=== PATIENT | female | born 1980 | race Caucasian/White ===

== ENCOUNTER 2017-02-17 07:42 | Emergency (ER) | payer SELFPAY ==
--- NOTE | 2017-02-17 10:23 | DIAGNOSTIC IMAGING REPORT ---
PROCEDURE: ABDOMEN/PELVIS WITH CONTRAST CLINICAL INDICATION: PERIUMBILICAL ABDO PAIN TECHNIQUE: 125 ml of Isovue 300 were injected intravenously and axial images were obtained of the abdomen and pelvis with sagittal and coronal reformations. COMPARISON: None. FINDINGS: ABDOMEN: Clear lung bases. Normal sized heart. No hiatal hernia. The liver, gallbladder, adrenal glands, kidneys, pancreas and spleen are normal. The abdominal aorta is normal in its course and caliber. No atherosclerosis. There are no suspicious calcifications, retroperitoneal adenopathy or masses. The stomach , upper bowel loops, and mesentery are normal. Intact anterior abdominal wall. No free fluid or inflammation. The appendix is in a retrocecal position and is of normal caliber without significant periappendiceal inflammation. There are air-fluid levels in liquid stool in the proximal colon and fluid within nondilated pelvic small bowel loops. PELVIS: Multiple cervical Nabothian cysts. The uterus, ovaries, urinary bladder, and pelvic vessels are normal. No adenopathy, free fluid, or pelvic mass. Intact osseous structures. IMPRESSION: 1. Air-fluid levels in the proximal colon suggestive of mild gastroenteritis. 2. Normal appendix. 3. Discussed with Dr. Campos in the emergency room. All CT scans at this facility use dose modulation, iterative reconstruction, and/or weight-based dosing when appropriate to reduce radiation dose to as low as reasonably achievable.
--- NOTE | 2017-02-17 10:32 | ED NURSING NOTES ---
Clinical Report - Nurses [facility] [address] [place] [address] 02/17/2017 7:45 Patient: CONCEPCIÓN MOSS TRIAGE Triage time 07:59. Chief Complaint: ABDOMINAL PAIN, NAUSEA, VOMITING and DIARRHEA. Alert. No acute distress. --08:09 Rufus Chaidez R.N. 08:05 02/17/17. BP: 129/86. HR: 76. RR: 20. O2 saturation: 100%. Temp: 98 F. Pain level now 04/17. --08:09 Rufus Chaidez R.N. Weight: 76.6 kg stated. Height/Length: 65 inches Per Patient. BMI: 28.1. --08:08 Rufus Chaidez R.N. Medications TraZODone HCl Oral. Wellbutrin Oral. --08:07 Rufus Chaidez R.N. Allergies None. --08:07 Rufus Chaidez R.N. History Arrived by private vehicle. Historian: patient. Accompanied by family. This started last night. She has had nausea, vomiting and diarrhea. SOCIAL HX: No alcohol use or drug use. --08:09 Rufus Chaidez R.N. ( patient with sudden onset, N,V & D last night at 10:30 pm). PAST MEDICAL HX: Last normal menstrual period- February 10. SELF HARM ASSESSMENT: A self harm assessment was performed. The patient answered "no" to the question "Do you have thoughts of harming or killing yourself?". FALL RISK ASSESSMENT: Fall risk assessment completed. No fall risk identified. NUTRITIONAL RISK ASSESSMENT: The nutritional risk assessment revealed no deficiencies. FUNCTIONAL ASSESSMENT: Functional assessment: no impairments noted. LEARNING NEEDS ASSESSMENT: The learning needs assessment revealed no barriers. SKIN INTEGRITY ASSESSMENT: Skin integrity risk assessment completed. No skin integrity risk identified. --08:12 Rufus Chaidez R.N. Interventions ID band on patient. To room. --08:09 Rufus Chaidez R.N. PHYSICAL ASSESSMENT GENERAL / NEURO / PSYCH: Alert. Oriented X 4. Appears in no acute distress. RESPIRATORY: Respirations not labored. Breath sounds within normal limits. GI / : Abdomen soft and nontender. Bowel sounds within normal limits. SKIN: Skin is warm and dry. --08:11 Rufus Chaidez R.N. NURSING PROGRESS NOTES Patient gowned. Reassurance given. Patient identifiers checked. Call light placed in reach. Side rails up x 1. Bed placed in lowest position. --08:11 Rufus Chaidez R.N. 08:17 02/17/2017 Site #1 started via IV in the left antecubital space with an 20g angiocath, with aseptic technique and good blood return; one attempt. Blood drawn: rainbow set. Labeled in the presence of the patient and sent to the lab. Saline lock flushed with 10 mL saline. --08:17 Latoya Rodriguez R.N. 08:40 02/17/2017 Started bag #1 1000 mL IV Fluids IV NS (Saline); bolus of 1000 mL over 1 hour(s) via site #1. Completed per protocol. --08:40 Rufus Chaidez R.N. 08:40 02/17/2017 Zofran (Ondansetron HCl) IVP 4 mg given over 1 minute(s) via site #1. IV patency established. IV site checked: no pain, redness, or swelling. IV flushed thoroughly pre- and post-medication administration. --08:41 Rufus Chaidez R.N. 08:50 02/17/2017 Morphine IVP 4 mg given over 3 minute(s) via site #1. --08:50 Rufus Chaidez R.N. 08:45 02/17/17. BP: 93/60 (regular adult cuff) taken on the right arm, while lying. HR: 65. RR: 20. --08:53 Rufus Chaidez R.N. 08:50 02/17/17. BP: 112/82 (regular adult cuff) taken on the right arm, while standing. HR: 75. RR: 16. --08:53 Rufus Chaidez R.N. 09:18 02/17/2017 IV Fluids IV NS Discontinued: bag #1 infused. Total amount infused: 1000 mL. IV patency established. IV site checked: no pain, redness, or swelling. IV flushed thoroughly. --09:18 Rufus Chaidez R.N. 09:18 02/17/2017 Zofran IVP Response: symptoms have improved. --09:18 Rufus Chaidez R.N. 09:18 02/17/2017 Morphine IVP Response: pain is improving. Symptoms have improved the patient feels better. --09:18 Rufus Chaidez R.N. Patient ID band checked for patient name and birthdate. Clean catch urine collected with return of yellow-colored clear urine; sample sent to lab for urinalysis. Specimen labeled in the presence of the patient. --09:19 Rufus Chaidez R.N. ( Ambulated to bathroom to void. Denies nausea at this time). --09:21 Rufus Chaidez R.N. Patient returned from CT by stretcher with Fleksy. --10:08 Rufus Chaidez R.N. 10:15 02/17/17. BP: 98/56. HR: 68. RR: 16. O2 saturation: 98%. Pain level now 10/18. --10:16 Rufus Chaidez R.N. DISPOSITION / DISCHARGE 10:46 02/17/2017 Site #1 removed upon discharge. Catheter intact. Bandaid applied. --10:46 Rufus Chaidez R.N. No learning barriers present. Discharge instructions provided and reviewed with the patient. Patient verbalized understanding. Written instructions provided in Ukrainian. The patient was discharged by the physician. She was discharged home and accompanied by family. --10:47 Rufus Chaidez R.N. 10:45 02/17/17. BP: 100/60. HR: 65. RR: 16. O2 saturation: 99%. Temp: 98.7 F. Pain level now 10/18. --10:47 Rufus Chaidez R.N. Locked/Released at 02/17/2017 10:50 by Rufus Chaidez R.N.
--- NOTE | 2017-02-17 10:32 | ED CLINICAL REPORT ---
Clinical Report - Physicians/Mid Levels [facility] [address] [place] [address] 02/17/2017 7:45 Patient: CONCEPCIÓN MOSS Time Seen: 0820. Arrived- By private vehicle. Historian- patient. CPT: ER phys charges level 4 (#[id number]). HISTORY OF PRESENT ILLNESS Chief Complaint: ABDOMINAL PAIN. At its maximum, severity described as moderate. When seen in the E.D., severity described as moderate. Modifying factors- worsened by movement. Relieved by rest. It is described as sharp and cramping. No radiation. It is described as located in the epigastric area. This started last night and is still present and worsening. It was gradual in onset and has been constant and waxing/waning but is not gone now. The patient has had nausea and diarrhea. No loss of appetite. She has had vomiting (described as nbnb). The patient has an additional complaint of abdominal pain moved here (located in the periumbilical region). (no recent travel, abx, sick contact, new/unusual foods.). No recent travel. Similar symptoms previously: None. REVIEW OF SYSTEMS No black stools, bloody stools, headache, chest pain or difficulty breathing. All systems otherwise negative, except as recorded above. PAST HISTORY See nurses notes. Medications: TraZODone HCl Oral. Wellbutrin Oral. Allergies: None. SOCIAL HISTORY Smoker- current status unknown. No alcohol use or drug use. No recent travel. Is a local resident. ADDITIONAL NOTES The nursing notes have been reviewed. PHYSICAL EXAM Vital Signs: 02/17/2017 08:05 BP: 129/86. HR: 76. RR: 20. O2 saturation: 100%. Temp: 98 F. Blood pressure normal. Oxygen saturation normal. Appearance: Alert. Oriented X3. No acute distress. (non-toxic). Eyes: Pupils equal, round and reactive to light. Eyes normal inspection. No scleral icterus. ENT: Ears normal. Nose normal. Pharynx normal. Neck: Normal inspection. Neck supple. CVS: Normal heart rate and rhythm. Heart sounds normal. Pulses normal. Respiratory: No respiratory distress. Breath sounds normal. Chest nontender. No rales, rhonchi or wheezes. Abdomen: Soft and nontender. Bowel sounds normal. Skin: Skin warm and dry. Normal skin color. No rash. Normal skin turgor. Extremities: Extremities exhibit normal ROM. No lower extremity edema. Neuro: Oriented X 3. No motor deficit. No sensory deficit. LABS, X-RAYS, AND EKG Abdominal CT: Appendix normal. gastroenteritis, fluid levels in small bowel. Abdominal CT performed with IV contrast. The study was interpreted by the radiologist and discussed with the radiologist. Laboratory Tests: UA-Culture if indicated: (KAROLYN: 02/17/2017 09:15) ( MsgRcvd 02/17/2017 09:38) Final results Test Result Flag Units (Reference) URINE COLOR YELLOW URINE APPEARANCE CLEAR URINE GLUCOSE NEGATIVE (NEGATIVE) URINE BILIRUBIN NEGATIVE (NEGATIVE) URINE KETONE NEGATIVE (NEGATIVE) URINE SPECIFIC GRAVITY 1.025 (1.010-1.030) URINE PH 5.5 (5.0-8.0) URINE PROTEIN NEGATIVE (NEGATIVE) URINE UROBILINOGEN 0.2 EU/dL (0.2-1.0) URINE NITRITE NEGATIVE (NEGATIVE) URINE BLOOD TRACE-INTACT (NEGATIVE) URINE LEUK ESTERASE NEGATIVE (NEGATIVE) URINE RBC RARE rbc/hpf (0-1) URINE WBC 0-1 wbc/hpf (0-1) URINE EPITHELIAL CELLS 1-3 EPI/hpf (0-5) URINE BACTERIA MODERATE (2+ TO 3+) (NONE SEEN) URINE COMMENT CULTURE INDICATED URINE CULTURES ARE SET-UP BASED ON THE FOLLOWING CRITERIA:POSITIVE NITRITEPOSITIVE LEUKOCYTE ESTERASEGREATER THAN 10 WHITE BLOOD CELLSMODERATE (2+) OR GREATER BACTERIA CBC w Diff: (KAROLYN: 02/17/2017 08:10) ( Mscvd 02/17/2017 08:39) Final results Test Result Flag Units (Reference) WHITE BLOOD COUNT 9.9 K/uL (4.5-11.5) RED BLOOD COUNT 4.63 M/uL (4.00-5.20) HEMOGLOBIN 14.6 gm/dL (12.0-16.0) HEMATOCRIT 43.5 % (36.0-46.0) MEAN CELL VOLUME 94 fL (80-100) MEAN CORPUSCULAR HGB 32 pg (26-34) MEAN CORPUSCULAR HGB CONC 34 g/dL (31-37) RED CELL DISTRIBUTION WIDTH 13.1 % (11.6-14.8) PLATELET COUNT 255 K/uL (150-400) NEUTROPHIL % 80.3 H % (50-75) LYMPH % 14.4 L % (25-40) MONO % 4.9 % (3-14) EOSINOPHIL % 0.2 % (0-4) BASOPHIL % 0.2 % (0-2) CMP: (KAROLYN: 02/17/2017 08:10) ( MsgRcvd 02/17/2017 08:57) Final results Test Result Flag Units (Reference) GLUCOSE 122 H mg/dL (70-110) BUN 17 mg/dL (7-18) CREATININE 0.9 mg/dL (0.6-1.3) Estimated GFR >60 mL/min Estimated GFR- >60 mL/min Note: Persistent reduction over 3 months in eGFR<60 mL/min/1.73 m2 defines CKD. Patients with eGFR values>=60 mL/min/1.73 m2 may also have CKD if evidence ofpersistent proteinuria. Additional information may be foundat www.kidney.org. SODIUM 144 mmol/L (136-145) POTASSIUM 4.2 mmol/L (3.5-5.1) CHLORIDE 109 H mmol/L (98-107) CARBON DIOXIDE 24 mmol/L (21-32) CALCIUM 8.7 mg/dL (8.5-10.1) TOTAL PROTEIN 8.1 g/dL (6.4-8.2) ALBUMIN 4.1 g/dL (3.3-5.0) BILIRUBIN, TOTAL 0.4 mg/dL (0.0-1.0) ALKALINE PHOSPHATASE 77 U/L (46-116) AST (SGOT) 17 U/L (15-37) ALT (SGPT) 21 U/L (12-78) LIPASE 95 U/L (73-393) BETA HCG, QUANTITATIVE <1 mIU/mL REFERENCE RANGE:Adult Males: <2 mIU/mLNon- Females: <6 mIU/mL Females:Approximate Approximate hCGGestational Age Range (mIU/mL) 0-1 week 0-501-2 weeks 40-3002-3 weeks 100-64598-2 weeks 500-03650-4 months 5,000-200,0002-3 months 10,000-100,0002nd trimester 3,000-50,0003rd trimester 1,000-50,000 . PROGRESS AND PROCEDURES Course of Care: the patient is a pleasant 36-year-old female with past medical history significant for past presenting for Evaluation of abdominal pain of abdominal pain. Patient's symptoms do not appear to be classic appendicitis however with the patient having epigastric abdominal pain and is moving to the periumbilical region, would be concern for possible appendicitis. Patient appears nontoxic. Pain medications been ordered. Also give patient fluids and nausea medication. CT scan of the abdomen and pelvis with contrast has been ordered. At the change of shift, the patient be signed out to the oncoming physician. Plan is follow up with patient's laboratory studies and CT scan of the abdomen and pelvis with contrast. Pt with gastroenteritis at this point . Will discharge for follow up . Patient/family counseled. Disposition: Discharged. Condition: stable and improved. CLINICAL IMPRESSION Acute norovirus gastroenteritis. INSTRUCTIONS No strenuous activity. Rest. Take clear liquids only (frequent sips) for the next 12 hours until better. Advance diet as tolerated. Warnings: Further evaluation is necessary. GENERAL WARNINGS: Return or contact your physician immediately if your condition worsens or changes unexpectedly, if not improving as expected, or if other problems arise. Prescription Medications: Zofran (orally disintegrating tablets) 4 mg: take 1 orally every 4 hours as needed for nausea. Dispense ten (10). No refill. Substitution is permissible. OTC Medications: Take acetaminophen (Tylenol, Datril, etc.) according to label instructions. Available over the counter. Follow-up: Follow up with your doctor Monday in three days. Call for an appointment. Understanding of the discharge instructions verbalized by patient and parent. (Electronically signed by Fede Campos MD 02/17/2017 13:50)
--- NOTE | 2017-02-17 10:32 | ED ORDER SUMMARY ---
..... Patient: CONCEPCIÓN MOSS OrderSheet [facility] VisitID: [id number] [address] [place] [address] 36y, F Registration Date/Time: 02/17/2017 ORDER SHEET Weight: 76.6 kg (stated) Allergies: None GENERAL ORDERS: CT Abd/Pel w Cont (No) (N/A) Urgent (08:02/17/2017 Zane Gibbs) (Ack 8:31 [facility] ER Tech1) CBC w Diff Urgent (:02/17/2017 Zane Gibbs) (Ack 8:31 [facility] ER Tech1) (8:37 Irina R.N.) CMP Urgent (02/17/2017 Zane Gibbs) (Ack 8:31 Cort[facility] ER Tech1) (8:37 Irina R.N.) UA-Culture if indicated Urgent (:02/17/2017 Zane Gibbs) (Ack 8:31 [facility] ER Tech1) Lipase Urgent (:02/17/2017 Zane Gibbs) (Ack 8:31 [facility] ER Tech1) (8:37 Irina R.N.) Serum Quantitative Urgent (02/17/2017 Zane Gibbs) (Ack 8:31 Cortney ER Tech1) (8:37 Irina R.N.) Pulse oximeter (02/17/2017 Zane Gibbs) (Ack 8:31 Cortney ER Tech1) (8:37 Irina R.N.) MEDICATION ORDERS: IV FLUIDS: IV NS : initial bolus 1000 mL (1000 mL/hr), then none - for X1 (NOW) (:02/17/2017 Zane Gibbs) (8:40 GMarshall R.N.) Morphine IV 4 mg (HIGH ALERT MEDICATION, NOW) (02/17/2017 Zane Gibbs) (8:50 GMarshall R.N.) Zofran IV 4 mg (NOW) (02/17/2017 Zane Gibbs) (8:41 GMarshall R.N.) ORDER SHEET NOTES: [Electronically signed by Rufus Chaidez R.N. (10:50 02/17/2017)] [Electronically signed by Fede Campos MD (13:50 02/17/2017)] [Electronically locked/signed by Rufus Chaidez R.N. (10:50 02/17/2017)]
--- NOTE | 2017-02-17 10:32 | ED ORDER SUMMARY ---
..... Patient: CONCEPCIÓN MOSS OrderSheet [facility] VisitID: [id number] [address] [place] [address] 36y, F Registration Date/Time: 02/17/2017 ORDER SHEET Weight: 76.6 kg (stated) Allergies: None GENERAL ORDERS: CT Abd/Pel w Cont (No) (N/A) Urgent (08:02/17/2017 Zane Gibbs) (Ack 8:31 [facility] ER Tech1) CBC w Diff Urgent (:02/17/2017 Zane Gibbs) (Ack 8:31 Cortney ER Tech1) (8:37 Irina R.N.) CMP Urgent (02/17/2017 Zane Gibbs) (Ack 8:31 Cort[facility] ER Tech1) (8:37 Irina R.N.) UA-Culture if indicated Urgent (:02/17/2017 Zane Gibbs) (Ack 8:31 Cort[facility] ER Tech1) Lipase Urgent (:02/17/2017 Zane Gibbs) (Ack 8:31 [facility] ER Tech1) (8:37 Irina R.N.) Serum Quantitative Urgent (02/17/2017 Zane Gibbs) (Ack 8:31 Cortney ER Tech1) (8:37 Irina R.N.) Pulse oximeter (02/17/2017 Zane Gibbs) (Ack 8:31 Cortney ER Tech1) (8:37 Irina R.N.) MEDICATION ORDERS: IV FLUIDS: IV NS : initial bolus 1000 mL (1000 mL/hr), then none - for X1 (NOW) (:02/17/2017 Zane Gibbs) (8:40 GMarshall R.N.) Morphine IV 4 mg (HIGH ALERT MEDICATION, NOW) (02/17/2017 Zane Gibbs) (8:50 GMarshall R.N.) Zofran IV 4 mg (NOW) (02/17/2017 Zane Gibbs) (8:41 GMarshall R.N.) ORDER SHEET NOTES: [Electronically signed by Rufus Chaidez R.N. (10:50 02/17/2017)] [Electronically signed by Fede Campos MD (13:50 02/17/2017)] [Electronically locked/signed by Rufus Chaidez R.N. (10:50 02/17/2017)]
--- NOTE | 2017-02-17 13:50 | ED MED RECONCILIATION SUMMARY ---
Patient: CONCEPCIÓN MOSS Medication Reconciliation Report [facility] VisitID: [id number] [address] [place] [address] 36y, F Registration Date/Time: 02/17/2017 Weight: 76.6 kg Height/Length: 65 in. BMI: 28.1 ALLERGIES: None The patient's Home Medications are listed below: THE FOLLOWING MEDICATIONS NEED TO BE RECONCILED: TraZODone HCl Oral Wellbutrin Oral The source(s) of the original Home Medication information: Not obtained. The following Medications were given to the patient in the Emergency Department: IV NS IV Fluids bolus 1000 mL over 1 hour(s), administered: 02/17/2017 8:40:00 AM Zofran [IVP] IVP 4 mg, administered: 02/17/2017 8:40:00 AM Morphine [IVP] IVP 4 mg, administered: 02/17/2017 8:50:00 AM The following Medications were prescribed to the patient: Take acetaminophen (Tylenol, Datril, etc.) according to label instructions. Available over the counter. -- Fede Campos MD Zofran (orally disintegrating tablets) 4 mg: take 1 orally every 4 hours as needed for nausea. Dispense ten (10). No refill. Substitution is permissible. -- Fede Campos MD
--- NOTE | 2017-02-17 13:50 | ED MAR SUMMARY ---
..... Medication Administration Record [facility] [address] [address] Patient: CONCEPCIÓN MOSS Visit ID: [id number] 36y, F Weight: 76.6 kg Height/Length: 65 in BMI: 28.1 ALLERGIES: None Start 08:40 02/17/2017 Rufus Chaidez R.N., Stop 09:18 02/17/2017 Rufus Chaidez R.N. Medication Administered: IV NS (SALINE), Dose: IV Fluids, Bolus: 1000 mL over 1 hour(s), Dispensed: 1000 mL bag, Site: #1 left AC. Medication Ordered: IV NS : initial bolus 1000 mL (1000 mL/hr), then none - for X1 (NOW). Given 08:40 02/17/2017 Rufus Chaidez R.N. Medication Administered: ZOFRAN [IVP] (ONDANSETRON HCL), Dose: 4 mg IVP over 1 minute(s), Site: #1 left AC. Medication Ordered: Zofran IV 4 mg (NOW). Given 08:50 02/17/2017 Rufus Chaidez R.N. Medication Administered: MORPHINE [IVP], Dose: 4 mg IVP over 3 minute(s), Site: #1 left AC. Medication Ordered: Morphine IV 4 mg (HIGH ALERT MEDICATION, NOW).
--- NOTE | 2017-02-17 13:50 | ED MED RECONCILIATION SUMMARY ---
Patient: CONCEPCIÓN MOSS Medication Reconciliation Report [facility] VisitID: [id number] [address] [place] [address] 36y, F Registration Date/Time: 02/17/2017 Weight: 76.6 kg Height/Length: 65 in. BMI: 28.1 ALLERGIES: None The patient's Home Medications are listed below: THE FOLLOWING MEDICATIONS NEED TO BE RECONCILED: TraZODone HCl Oral Wellbutrin Oral The source(s) of the original Home Medication information: Not obtained. The following Medications were given to the patient in the Emergency Department: IV NS IV Fluids bolus 1000 mL over 1 hour(s), administered: 02/17/2017 8:40:00 AM Zofran [IVP] IVP 4 mg, administered: 02/17/2017 8:40:00 AM Morphine [IVP] IVP 4 mg, administered: 02/17/2017 8:50:00 AM The following Medications were prescribed to the patient: Take acetaminophen (Tylenol, Datril, etc.) according to label instructions. Available over the counter. -- Fede Campos MD Zofran (orally disintegrating tablets) 4 mg: take 1 orally every 4 hours as needed for nausea. Dispense ten (10). No refill. Substitution is permissible. -- Fede Campos MD
--- NOTE | 2017-02-17 13:50 | ED MAR SUMMARY ---
..... Medication Administration Record [facility] [address] [place] [address] Patient: CONCEPCIÓN MOSS Visit ID: [id number] 36y, F Weight: 76.6 kg Height/Length: 65 in BMI: 28.1 ALLERGIES: None Start 08:40 02/17/2017 Rufus Chaidez R.N., Stop 09:18 02/17/2017 Rufus Chaidez R.N. Medication Administered: IV NS (SALINE), Dose: IV Fluids, Bolus: 1000 mL over 1 hour(s), Dispensed: 1000 mL bag, Site: #1 left AC. Medication Ordered: IV NS : initial bolus 1000 mL (1000 mL/hr), then none - for X1 (NOW). Given 08:40 02/17/2017 Rufus Chaidez R.N. Medication Administered: ZOFRAN [IVP] (ONDANSETRON HCL), Dose: 4 mg IVP over 1 minute(s), Site: #1 left AC. Medication Ordered: Zofran IV 4 mg (NOW). Given 08:50 02/17/2017 Rufus Chaidez R.N. Medication Administered: MORPHINE [IVP], Dose: 4 mg IVP over 3 minute(s), Site: #1 left AC. Medication Ordered: Morphine IV 4 mg (HIGH ALERT MEDICATION, NOW).
--- NOTE | 2017-02-17 13:50 | ED DISCHARGE INSTRUCTIONS ---
Patient: CONCEPCIÓN MOSS General Instructions [facility] VisitID: [id number] [place] [address] 36y, F Registration Date/Time: 02/17/2017 Acute norovirus gastroenteritis. INSTRUCTIONS No strenuous activity. Rest. Take clear liquids only (frequent sips) for the next 12 hours until better. Advance diet as tolerated. Warnings: Further evaluation is necessary. GENERAL WARNINGS: Return or contact your physician immediately if your condition worsens or changes unexpectedly, if not improving as expected, or if other problems arise. Prescription Medications: Zofran (orally disintegrating tablets) 4 mg: take 1 orally every 4 hours as needed for nausea. Dispense ten (10). No refill. Substitution is permissible. OTC Medications: Take acetaminophen (Tylenol, Datril, etc.) according to label instructions. Available over the counter. Follow-up: Follow up with your doctor Monday in three days. Call for an appointment. Understanding of the discharge instructions verbalized by patient and parent. ADDITIONAL INFORMATION Viral Gastroenteritis (6Yr-Adult) Gastroenteritis is another name for thestomach flu.It is most often caused by a virus that affects the stomach and intestinal tract. Symptoms include stomach cramping and fever, vomiting and/or diarrhea, and can last from 2 to 7 days. The danger from repeated vomiting or diarrhea is dehydration. This is the loss of too much water and minerals from the body. When this occurs, body fluids must be replaced. Antibiotics are not effective for this illness, but simple home treatment will be helpful. Home Care If symptoms are severe, rest at home for the next 24 hours. Avoid tobacco, caffeine, and alcohol use, which can worsen symptoms. Acetaminophen (Tylenol) or ibuprofen (Motrin, Advil) may be usedfor fever or pain unless another medication was prescribed. NOTE: If you have chronic liver or kidney disease or ever had a stomach ulcer or GI bleeding, talk with your doctor before using these medicines. Aspirin should never be used in anyone under 18 years of age who is ill with a fever. It may cause severe liver damage. If medicines for diarrhea or vomiting were prescribed, be sure they are takenonly as directed. If vomiting, drink small amounts of clear fluids (such as water, sports drinks, clear sodas) at frequent intervals to prevent dehydration. Start with 1 to 2 tablespoons every 10 minutes. Once vomiting stops, follow these guidelines: During The First 12 To 24 Hours follow the diet below: Beverages: Sport drinks like Gatorade, soft drinks without caffeine; aditya cassy, mineral water (plain or flavored), decaffeinated tea and coffee. Soups: Clear broth, consomm and bouillon Desserts: Plain gelatin (Jell-O), Popsicles and fruit juice bars. During The Next 24 Hours you may add the following to the above: Hot cereal, plain toast, bread, rolls, crackers Plain noodles, rice, mashed potatoes, chicken noodle or rice soup Unsweetened canned fruit (avoid pineapple), bananas Limit fat intake to less than 15 grams per day by avoiding margarine, butter, oils, mayonnaise, sauces, gravies, fried foods, peanut butter, meat, poultry, and fish. Limit fiber; avoid raw or cooked vegetables, fresh fruits (except bananas), and bran cereals. Limit caffeine and chocolate. Do not use spices or seasonings except salt. During The Next 24 Hours The patient can gradually resume a normal diet as symptoms lessen. Preventing Spread Hand washing with soap and water is the best way to prevent the spread of viruses. Caregivers should wash their hands before andafter touching the sick person. The sick person, as well as everyone in the family,should wash their hands after using the toilet and before meals. Clean the toilet after each use. People with diarrhea should not prepare food for others. If you are preparing your own foods, wash your hands before and after. Follow Up with your doctor as advised. Call your doctor if you are not improving over the next 2 to 3 days. If a stool (diarrhea) sample was taken, you may call in 2 days (or as directed) for the results. Get Prompt Medical Attention if any of the following occur: Increasing abdominal pain Continued vomiting (unable to keep liquids down) Frequent diarrhea (more than 5 times a day) Blood in vomit or stool (black or red color) Dark urine, reduced urine output, or extreme thirst Weakness, dizziness, fainting Drowsiness, confusion, stiff neck, or seizure Fever of 100.4F (38C) oral or higher, not better with fever medication New rash Clear Liquid Diet Clear liquids are any liquid that you can see through as well as those that are very easy to digest. This is used while the body is recovering from irritation or infection of the stomach or intestinal tract. It may also be used before special procedures or surgery. This diet is to be used no more than three days. You may include the following items. Adults Adults should drink a total of 23 quarts of liquid per day. It may be easier to drink small frequent servings rather than a few large ones. Liquids can include: Fruit juices.Strained orange juice or lemonade (no pulp), apple, grape and cranberry juice, clear fruit drinks, sports drinks Beverages.Sport drinks, sodas, mineral water (plain or flavored), tea, black coffee, liquid gelatin (add twice the recommended amount of water) Soups.Clear broth, consomm, bouillon Desserts.Plain gelatin, popsicles, fruit juice bars Children Over 2 years old The following liquids are acceptable for children over age 2: Fruit juices.Strained orange juice or lemonade (no pulp), apple, grape and cranberry juice, clear fruit drinks Beverages. Sports drinks, sodas, mineral water (plain or flavored), tea, liquid gelatin (add twice the recommended amount of water) Soups. Clear broth, consomm, bouillon Desserts. Plain gelatin, popsicles, fruit juice bars Children under 2 years old Oral rehydration fluids such are available at drug stores and most grocery stores without a prescription. Ondansetron Oral disintegrating tablet What is this medicine? ONDANSETRON (on FINA se brigida) is used to treat nausea and vomiting caused by chemotherapy. It is also used to prevent or treat nausea and vomiting after surgery. How should I use this medicine? These tablets are made to dissolve in the mouth. Do not try to push the tablet through the foil backing. With dry hands, peel away the foil backing and gently remove the tablet. Place the tablet in the mouth and allow it to dissolve, then swallow. While you may take these tablets with water, it is not necessary to do so. Talk to your golf course keeper regarding the use of this medicine in children. Special care may be needed. What side effects may I notice from receiving this medicine? Side effects that you should report to your doctor or [facility] as soon as possible: allergic reactions like skin rash, itching or hives, swelling of the face, lips, or tongue breathing problems dizziness fast or irregular heartbeat feeling faint or lightheaded, falls fever and chills swelling of the hands and feet tightness in the chest Side effects that usually do not require medical attention (report to your doctor or health [facility] if they continue or are bothersome): constipation or diarrhea headache What may interact with this medicine? Do not take this medicine with any of the following medications: -apomorphine -cisapride -dofetilide -dronedarone -pimozide -thioridazine -ziprasidone This medicine may also interact with the following medications: -carbamazepine -phenytoin -rifampicin -tramadol -other medicines that prolong the QT interval (cause an abnormal heart rhythm) What if I miss a dose? If you miss a dose, take it as soon as you can. If it is almost time for your next dose, take only that dose. Do not take double or extra doses. Where should I keep my medicine? Keep out of the reach of children. Store between 2 and 30 degrees C (36 and 86 degrees F). Throw away any unused medicine after the expiration date. What should I tell my health care provider before I take this medicine? They need to know if you have any of these conditions: heart disease history of irregular heartbeat liver disease low levels of magnesium or potassium in the blood an unusual or allergic reaction to ondansetron, granisetron, other medicines, foods, dyes, or preservatives or trying to get breast-feeding What should I watch for while using this medicine? Check with your doctor or health [facility] as soon as you can if you have any sign of an allergic reaction. You have been given the following additional information: Gastroenteritis, Viral (6Y-Adult) Diet, Clear Liquid Ondansetron Oral disintegrating tablet No strenuous activity. Rest. (Electronically signed by Fede Campos MD 02/17/2017 13:50)
== END 2017-02-17 10:50 | disposition home or self-care (01) ==
LOC: ED SRH 07:42
DX: A08.11 Acute gastroenteropathy due to Norwalk agent (principal)
CPT/HCPCS: 90004; 90100; 90197; 90469; 92235; 95059